=== PATIENT | female | born 1960 | race Caucasian/White ===

== ENCOUNTER 2016-09-06 02:42 | Emergency (ER) | payer SELFPAY ==
[~2016-09-06] VITALS: Ht 167.6 cm; Wt 59.1 kg
[~2016-09-06 02:42] MED LIST: QUET200T PO
[2016-09-06 03:46] VITALS: BP 119/71
== END 2016-09-06 03:52 | disposition home or self-care (01) ==
LOC: EMS 02:43
DX: R04.0 Epistaxis (principal); R53.1 Weakness; F20.9 Schizophrenia, unspecified; Z59.0 Homelessness
CPT/HCPCS: 99283